=== PATIENT | female | born 1990 | race Caucasian/White ===

== ENCOUNTER 2018-12-19 13:56 | Emergency (ER) | payer OTHER, SELFPAY ==
[2018-12-19 13:59] VITALS: BP 127/75; PULSE 94; RESP 16; TEMP 36.8; O2SAT 99; BMI 29.2
--- NOTE | 2018-12-19 14:36 | ED.RN ---
STATES THAT WHEN SHE GOES TO THE RESTROOM AND STRAINS, WE BLEEDS MORE.
--- NOTE | 2018-12-19 15:07 | US_ITS ---
STUDY: FIRST TRIMESTER OBSTETRICAL ULTRASOUND REASON FOR EXAM: Female, 28 years old. Moderate bleeding cramping positive LMP: 10/30/2018 TECHNIQUE: Transvaginal TECHNICAL QUALITY: Adequate. PRIOR ULTRASOUND: None. FINDINGS: There is a gestational sac slightly low lying within the uterine fundus on the border of the lower uterine segment The mean sac diameter (MSD) measures 0.7 cm, indicating an estimated gestational age (EGA) of 5 weeks, 3 days. There is a teardrop shape of the gestational sac on the sagittal views. A yolk sac is visualized measuring 2.2 cm. There is echogenic material within the gestational sac that measures 6.5 mm. This may represent a pole which would equate to a 6 week 4 day . This shows no evidence of cardiac activity. The estimated gestation age (EGA) by LMP is 7 weeks, 1 days. The estimated date of delivery (ARINA) by LMP is 08/06/2019. The estimated gestation age (EGA) by US is 6 weeks, 0 days. The estimated date of delivery (ARINA) by US is 08/14/2019. The uterus measures 8.9 x 5.7 x 4.8 cm. There is a small anteriorly located fibroid measuring 1.9 x 2.2 x 2.0 cm this is partially exophytic. There is a inhomogeneous appearance of the visualized cervix with possible small calcifications and/or fluid. The right ovary measures 2.4 x 1.7 x 1.3 cm. There is no right ovarian cyst. There is no visualized right adnexal mass or complex lesion. The left ovary measures 2.7 x 2.2 x 1.5 cm. There is a small hypoechoic cyst measuring 1.3 x 1.4 x 1.2 cm. There is no visualized left adnexal mass or complex lesion. There is no fluid in the cul de sac. US/Transvaginal w/Preg US IMPRESSION: There is a gestational sac which is in the low aspect of the fundus proximal aspect of the uterine segment with a echogenic focus which is suggestive of a pole but somewhat atypical in shape with a gestational sac and atypical in shape and density for the material within the gestational sac. At this time there are no M-mode heart tones raising concern for demise. However given that this is an early recommend close interval follow-up study, to clarify. Electronically Signed: Caroline Segundo MD at 16:41 EDT Tel , Service support ,
--- NOTE | 2018-12-19 15:23 | ED.DCSUM_ITS ---
- ER Visit Summary Date of Service: 12/19/18 Chief Complaint: Vaginal bleeding History of Present Illness: The patient is a 28 F who had a positive home test 2 or 3 weeks ago. She started spotting a few days ago and has had heavier bleeding today. She reports some mild cramping. She has not yet seen an OB with this and is scheduled to be seen next week for blood work. Physical Examination: Vital signs unremarkable. Patient sitting upright in bed no acute distress. Head neck examination unremarkable. Heart is regular rate and rhythm. Lungs sounds are clear. Abdomen is soft with minimal suprapubic tenderness. No guarding or rebound noted. Test Results: CBC is unremarkable. Quant is 2306. Blood type is A+. Ultrasound shows gestational sac that is low in the fundus with a focus suggestive of a pole, but atypical in shape. No heart tones are noted. This is potentially concerning for demise versus early . Emergency Department Course and Treatment: Test results discussed with the patient. Her FINANCIAL ADVISER is currently out of the area. I spoke with Dr. Garcia and he states they can follow-up with the patient if need be [facility] I did write a repeat quant to be performed in 48 hours. Treatment Plan: [] Disposition: Discharge Impression: Threatened AB This note was generated with [employer] dictation software. It may contain incorrect words, spelling, and punctuation that were not noted in review of the chart prior to signing ED Disposition - Plan for ED Patient: Disposition: Home or Assisted Living Instructions: ED Miscarriage Poss Referrals: Raymundo Garcia MD [STAFF PHYSICIAN] -
[2018-12-19 16:00] LABS: Absolute Lymphocyte Count 1.26 X10^3/ul (0.83-4.51); Absolute Neutrophil Count 5.3 X10^3/uL (2.0-7.7); Basophil# 0.02 X10^3/uL; Basophil% 0.3 % (0-1); Eosinophil# 0.06 X10^3/uL; Eosinophils% 0.8 % (0-5); Hemoglobin 13.5 g/dl (12.0-15.0); Lymphocyte # 1.26 X10^3/ul (4.0); Lymphocyte % 17.3 % (19-41); Mean Corp Hgb Conc 33.8 g/gl (32-36); Mean Corpuscular Hgb 30.6 pg (27.0-32.0); Mean Corpuscular Volume 90.7 fL (81-99); Mean Platelet Vol. 10.5 fl (6.2-12.0); Monocyte% 8.3 % (0-10); Neutrophil # 5.32 X10^3/uL (2.7-7.7); Neutrophil % 73.2 % (47-70); POSITIVE COUNT NO; POSITIVE DIFFERENTIAL NO; POSITIVE MORPHOLOGY NO; Platelet Count 214 K/mm3 (150-450); RBC Distribution Width CV 13.7 % (11.6-14.6); Red Blood Count 4.41 M/mm3 (4.2-5.4); White Blood Count 7.3 K/mm3 (4.4-11.0)
[2018-12-19 17:03] LABS: hCG Titer Quant., Serum 2306 mIU/mL (<9 non-preg)
--- NOTE | 2018-12-19 17:03 | ED.RN ---
LAB CALL WITH REPORTABLE HCG VALUE OF 2306. VERBALLY REPORTED TO DR. KING AND SAMEER LANDAVERDE.
--- NOTE | 2018-12-19 18:18 | ED.DEP ---
ED Disposition - Plan for ED Patient: Disposition: Home or Assisted Living Instructions: ED Miscarriage Poss Referrals: Raymundo Garcia MD [STAFF PHYSICIAN] -
[2018-12-19 18:31] VITALS: PULSE 66
[2018-12-19 18:32] VITALS: BP 103/77; PULSE 66; RESP 14; O2SAT 99
== END 2018-12-19 18:32 | disposition home or self-care (01) ==
PROVIDERS: Emergency Provider Emergency Medicine
DX: O20.0 Threatened abortion (principal); Z3A.00 Weeks of gestation of pregnancy not specified
CPT/HCPCS: 76817; 84702; 85025; 86900; 99283; A4216

== ENCOUNTER → 2018-12-21 13:31 | Outpatient (CLI) | payer OTHER, SELFPAY ==
[2018-12-19 13:59] VITALS: BMI 29.2
[2018-12-21 15:09] LABS: hCG Titer Quant., Serum 498 mIU/mL (<9 non-preg)
== END ==
PROVIDERS: Referring Provider Emergency Medicine; Visit Provider Emergency Medicine
DX: O20.0 Threatened abortion (principal); Z3A.00 Weeks of gestation of pregnancy not specified
CPT/HCPCS: 36415; 84702

== ENCOUNTER → 2020-09-25 12:34 | Outpatient (CLI) | payer OTHER, SELFPAY ==
[2020-09-25 14:01] LABS: hCG Titer Quant., Serum 30451 mIU/mL (1-3)
== END ==
LOC: LAB 12:36
PROVIDERS: Referring Provider Obstetrics & Gynecology; Visit Provider Obstetrics & Gynecology
DX: N91.2 Amenorrhea, unspecified (principal)
CPT/HCPCS: 36415; 84702

== ENCOUNTER → 2020-10-14 14:40 | Outpatient (CLI) | payer OTHER, SELFPAY ==
--- NOTE | 2020-10-14 14:44 | US_ITS ---
STUDY: FIRST TRIMESTER OBSTETRICAL ULTRASOUND REASON FOR EXAM: Female, 29 years old DATING. HCG DRAWN 09/25/2020- [id number]. LMP: 08/21/2020 TECHNIQUE: Transabdominal TECHNICAL QUALITY: Adequate. PRIOR ULTRASOUND: None. FINDINGS: There is visualization of a single gestational sac in a normal intrauterine position. The mean sac diameter (MSD) measures 3.52 cm, indicating an estimated gestational age (EGA) of 8 weeks, 5 days. The gestational sac shape is within normal limits containing 2 live embryos. Trace subchorionic blood is suspected. The placenta is non-visualized. Baby A: The crown-rump length (CRL) measures 2.42 cm, indicating an estimated gestational age (EGA) of 8 weeks, 5 days. There is demonstrated cardiac activity with a heart rate of 176 bpm. There is a visualized yolk sac measuring 0.46 cm. The estimated gestation age (EGA) by LMP is 7 weeks, 5 days. The estimated date of delivery (ARINA) by LMP is 05/28/2021. The estimated gestation age (EGA) by US is 8 weeks, 5 days. The estimated date of delivery (ARINA) by US is 05/21/2021. Baby B: The crown-rump length (CRL) measures 2.42 cm, indicating an estimated gestational age (EGA) of 8 weeks, 6 days. There is demonstrated cardiac activity with a heart rate of 176 bpm. There is a visualized yolk sac measuring 0.41 cm. The estimated gestation age (EGA) by LMP is 7 weeks, 5 days. The estimated date of delivery (ARINA) by LMP is 05/28/2021. The estimated gestation age (EGA) by US is 8 weeks, 5 days. The estimated date of delivery (ARINA) by US is 05/21/2021. The uterus measures 9.4 x 7.5 x 6.5 cm. There is no demonstrated uterine fibroid. The cervix is closed. The right ovary measures 2.6 x 2.3 x 1.5 cm. There is no right ovarian cyst. There is no visualized right adnexal mass or complex lesion. The left ovary measures 2.8 x 2.8 x 2.9 cm. There is a 2.4 cm left ovarian cyst. There is no fluid in the cul de sac. IMPRESSION: Intrauterine with a single gestational sac containing 2 live embryos. Trace subchorionic blood is suspected. Left ovarian cyst. Electronically Signed: Mauri GuanDO at 16:39 EST Tel [phone], Service support , STUDY: FIRST TRIMESTER OBSTETRICAL ULTRASOUND REASON FOR EXAM: Female, 29 years old DATING. HCG DRAWN 09/25/2020- [id number]. LMP: 08/21/2020 TECHNIQUE: Transabdominal TECHNICAL QUALITY: Adequate. PRIOR ULTRASOUND: None. FINDINGS: There is visualization of a single gestational sac in a normal intrauterine position. The mean sac diameter (MSD) measures 3.52 cm, indicating an estimated gestational age (EGA) of 8 weeks, 5 days. The gestational sac shape is within normal limits containing 2 live embryos. Trace subchorionic blood is suspected. The placenta is non-visualized. Baby A: The crown-rump length (CRL) measures 2.42 cm, indicating an estimated gestational age (EGA) of 8 weeks, 5 days. There is demonstrated cardiac activity with a heart rate of 176 bpm. There is a visualized yolk sac measuring 0.46 cm. The estimated gestation age (EGA) by LMP is 7 weeks, 5 days. The estimated date of delivery (ARINA) by LMP is 05/28/2021. The estimated gestation age (EGA) by US is 8 weeks, 5 days. The estimated date of delivery (ARINA) by US is 05/21/2021. Baby B: The crown-rump length (CRL) measures 2.42 cm, indicating an estimated gestational age (EGA) of 8 weeks, 6 days. There is demonstrated cardiac activity with a heart rate of 176 bpm. There is a visualized yolk sac measuring 0.41 cm. The estimated gestation age (EGA) by LMP is 7 weeks, 5 days. The estimated date of delivery (ARINA) by LMP is 05/28/2021. The estimated gestation age (EGA) by US is 8 weeks, 5 days. The estimated date of delivery (ARINA) by US is 05/21/2021. The uterus measures 9.4 x 7.5 x 6.5 cm. There is no demonstrated uterine fibroid. The cervix is closed. The right ovary measures 2.6 x 2.3 x 1.5 cm. There is no right ovarian cyst. There is no visualized right adnexal mass or complex lesion. The left ovary measures 2.8 x 2.8 x 2.9 cm. There is a 2.4 cm left ovarian cyst. There is no visualized left adnexal mass or complex lesion. There is no fluid in the cul de sac. US/Init OB < 14Wks US IMPRESSION: Intrauterine with a single gestational sac containing 2 live embryos. Trace subchorionic blood is suspected. Left ovarian cyst. Electronically Signed: Mauri Guan DO at 16:39 EST Tel [phone], Service support ,
== END ==
LOC: OPUS 14:42
PROVIDERS: Referring Provider Obstetrics & Gynecology; Visit Provider Obstetrics & Gynecology
DX: Z78.9 Other specified health status (principal)
CPT/HCPCS: 76801; 76802

== ENCOUNTER → 2020-10-17 14:08 | Outpatient (CLI) | payer OTHER, SELFPAY ==
[2020-10-17 13:20] VITALS: BMI 29.6
[2020-10-17 15:05] LABS: Absolute Lymphocyte Count 1.51 X10^3/uL (0.83-4.51); Absolute Neutrophil Count 4.7 X10^3/uL (2.0-7.7); Basophil# 0.02 X10^3/uL; Basophil% 0.3 % (0-1); Eosinophils% 1.4 % (0-5); Hematocrit 36.3 % (37-47); Hemoglobin 12.3 g/dL (12.0-15.0); Lymphocyte # 1.51 X10^3/ul (4.0); Lymphocyte % 21.8 % (19-41); Mean Corp Hgb Conc 33.9 g/dL (32-36); Mean Corpuscular Hgb 30.7 pg (27.0-32.0); Mean Corpuscular Volume 90.5 fL (81-99); Mean Platelet Vol. 10.6 fl (6.2-12.0); Monocyte# 0.62 X10^3/uL; Monocyte% 8.9 % (0-10); NRBC Flagged by Analyzer 0 % (0-5); Neutrophil # 4.68 X10^3/uL (2.7-7.7); Neutrophil % 67.5 % (47-70); Platelet Count 263 K/mm3 (150-450); RBC Distribution Width CV 12.5 % (11.6-14.6); RBC Distribution Width SD 41.3 fl (35.1-43.9); Red Blood Count 4.01 M/mm3 (4.2-5.4); White Blood Count 6.9 K/mm3 (4.4-11.0)
[2020-10-17 15:24] LABS: Glucose Challenge Gest 1H 50g 83 mg/dL (70-140)
[2020-10-17 15:29] LABS: Amphetamine Urine VISTA NEGATIVE (<1000 ng/mL); Barbiturate Urine VISTA NEGATIVE (< 200 ng/mL); Benzodiazepine Urine VISTA NEGATIVE (< 200 ng/mL); Cocaine Urine VISTA NEGATIVE (< 300 ng/mL); Ecstacy Urine VISTA NEGATIVE (< 500 ng/mL); Methadone Urine VISTA NEGATIVE (< 300 ng/mL); PCP Urine VISTA NEGATIVE (< 25 ng/mL); THC Urine VISTA NEGATIVE (< 50 ng/mL); Vista UDS pH Range 6
[2020-10-17 16:18] LABS: HIV - WCH Non-Reactive (Nonreactive); Hepatitis B Surface Antigen Non-Reactive (Nonreactive); Hepatitis C Antibody Non-Reactive (Nonreactive); Rubella IgG Non-Reactive (Nonreactive)
[2020-10-17 17:55] LABS: Chlamydia Trachomatis by PCR Negative (Negative); Neisserai gonorrhoeae by PCR Negative (Negative); Probe Check PASS; Sample Adequacy Control PASS; Specimen Processing Control PASS
[2020-10-23 15:41] LABS: HPV APTIMA, High Risk Negative (Negative)
[2020-10-24 01:40] LABS: Rapid Plasmin Reagin (RPR) NONREACTIVE (NONREACTIVE)
== END ==
LOC: LAB 14:10
PROVIDERS: Referring Provider Obstetrics & Gynecology; Visit Provider Obstetrics & Gynecology
DX: Z34.90 Encounter for supervision of normal pregnancy, unspecified, unspecified trimester (principal)
CPT/HCPCS: 36415; 80307; 82950; 85025; 86592; 86703; 86762; 86803; 86850; 86900; 86901; 87086; 87088; 87340; 87491; 87591; 87624; 88175; G0145

== ENCOUNTER → 2020-11-13 16:53 | Outpatient (CLI) | payer OTHER, SELFPAY ==
[2020-11-13 14:45] VITALS: BMI 29.7
== END ==
LOC: LABSPEC 16:54
PROVIDERS: Referring Provider Nurse Practitioner Women's Health; Visit Provider Nurse Practitioner Women's Health
DX: R30.9 Painful micturition, unspecified (principal)
CPT/HCPCS: 87086; 87088

== ENCOUNTER → 2020-12-27 16:53 | Outpatient (CLI) | payer OTHER, SELFPAY ==
[2020-12-27 15:58] VITALS: BMI 30.6
== END ==
LOC: LABSPEC 16:54
PROVIDERS: Referring Provider Obstetrics & Gynecology; Visit Provider Obstetrics & Gynecology
DX: O26.899 Other specified pregnancy related conditions, unspecified trimester (principal); R10.2 Pelvic and perineal pain; R30.0 Dysuria; Z3A.00 Weeks of gestation of pregnancy not specified
CPT/HCPCS: 87070; 87086; 87088; 87205

== ENCOUNTER → 2021-02-20 14:27 | Outpatient (CLI) | payer OTHER, SELFPAY ==
[2021-02-06 15:54] VITALS: BMI 31.6
[2021-02-20 14:54] LABS: Absolute Lymphocyte Count 1.73 X10^3/uL (0.83-4.51); Absolute Neutrophil Count 6.1 X10^3/uL (2.0-7.7); Basophil# 0.05 X10^3/uL; Basophil% 0.6 % (0-1); Eosinophil# 0.09 X10^3/uL; Hematocrit 32.4 % (37-47); Hemoglobin 10.5 g/dL (12.0-15.0); Lymphocyte # 1.73 X10^3/ul (0.83-4.51); Lymphocyte % 19.1 % (19-41); Mean Corp Hgb Conc 32.4 g/dL (32-36); Mean Corpuscular Hgb 29.9 pg (27.0-32.0); Mean Corpuscular Volume 92.3 fL (81-99); Mean Platelet Vol. 9.8 fl (6.2-12.0); Monocyte# 0.81 X10^3/uL; NRBC Flagged by Analyzer 0 % (0-5); Neutrophil # 6.14 X10^3/uL (2.7-7.7); Neutrophil % 67.9 % (47-70); Platelet Count 247 K/mm3 (150-450); RBC Distribution Width CV 13.3 % (11.6-14.6); RBC Distribution Width SD 44.1 fl (35.1-43.9); Red Blood Count 3.51 M/mm3 (4.2-5.4)
[2021-02-20 15:46] LABS: Glucose Challenge Gest 1H 50g 97 mg/dL (70-140)
[2021-02-24 17:16] VITALS: BMI 31.9
== END ==
PROVIDERS: Referring Provider Obstetrics & Gynecology; Visit Provider Obstetrics & Gynecology
DX: O09.90 Supervision of high risk pregnancy, unspecified, unspecified trimester (principal); Z3A.00 Weeks of gestation of pregnancy not specified; Z13.1 Encounter for screening for diabetes mellitus
CPT/HCPCS: 36415; 82950; 85025

== ENCOUNTER 2021-02-24 16:50 | Outpatient (CLI) | payer OTHER, SELFPAY ==
[2021-02-20 15:08] VITALS: BMI 31.6
[2021-02-24] VITALS (21 sets, daily range): BP systolic 117–144; BP diastolic 63–79; PULSE 94–122; RESP 18–20; TEMP 36.4–36.9; O2SAT 97–100; BMI 31.9
[2021-02-24] MEDS: Lactated Ringers 1,000 ML 25 ML IV (17:55)
[2021-02-24] MEDS: Magnesium Sulfate 4gm/100mL 6 GM/150 ML IV.SOLN. IV (17:56)
[2021-02-24] MEDS: Indomethacin 25 MG Capsule 50 MG PO (18:00)
[2021-02-24 18:02] LABS: Color, Urine Yellow (Yellow); Glucose, Dipstick Normal (Normal); Ketone-Dipstick Negative (Negative); Leukocyte Esterase-Dipstick 100 /ul (Negative); Nitrite-Dipstick Negative (Negative); Occult Blood-Urine Negative /ul (Negative); Protein-Dipstick Negative (Negative); Urine Bilirubin Dipstick Negative (Negative); Urine Clarity Clear (Clear); Urine Urobilinogen Normal (Normal)
--- NOTE | 2021-02-24 18:03 | OB.TRI.HP_ITS ---
HPI - General HPI Narrative DAVID BATISTA, is a 30 F at 27 weeks 5 days who presents for contractions. Patient reports that she started dave every 8 to 10 minutes last night. Reports that contractions have become more regular and painful throughout the day. She has tried resting and p.o. hydration and has not noticed any relief. Reports contractions are becoming increasingly painful and wrapping around to her back. Reports that her underwear felt increasingly wet throughout the day today, but did not notice a large gush of fluid. Denies vaginal bleeding. Reports movement is normal. Denies dysuria. Maternal Data Information ARINA Calculator Estimated Delivery Date Method Current WG Current Estimate 05/21/21 Ultrasound #1 27w 5d # 2 PFSH Medical History (Updated 02/24/21 @ 18:[address] Chelsie Leone MD) H/O gestational diabetes in prior , currently Raynaud disease Home Medications aspirin 81 mg chewable tablet 81 mg PO DAILY 11/13/20 [History Last Taken 1 Week Ago ~02/17/21] Vitamin 1 tab DAILY 02/24/21 [History Last Taken 02/24/21 13:00] diphenhydramine HCl [Benadryl] 50 mg PO QHS PRN PRN 02/24/21 [History Last Taken 3 Days Ago ~02/21/21] ferrous sulfate 325 mg PO DAILY 02/24/21 [History Last Taken Unknown] folic acid 1 mg PO DAILY 02/24/21 [History Last Taken 2 Days Ago ~02/22/21] Allergy/AdvReac Type Severity Reaction Status Date / Time shellfish derived Allergy Severe Anaphylaxis Verified 02/24/21 18:07 gluten Allergy Upset Verified 02/24/21 18:07 Stomach DAIRY Allergy Upset Uncoded 02/24/21 18:07 Stomach Family History Mother Diabetes type 2 Bipolar 1 disorder, depressed Schizo affective schizophrenia Father Thyroid disorder Cancer Brother Diabetes type 1 Sister Thyroid disorder Sister Thyroid disorder Aunt Diabetes type 1 Grandmother Breast cancer Surgical History History of appendectomy Social History household members: family housing: house number of children: 1 current occupational status: employed current occupation: corporate technical recruiter for [employer] pets and animals: Yes Smoking Status: Never smoker second hand exposure: No alcohol intake: current alcohol intake frequency: holidays/special occasions only details: not while substance use type: does not use diet: diabetic, gluten free and lactose free seatbelt use: always do you feel safe at home: Yes additional social history: - Virgilio (geospatial information technologist) History 3 Elective abortions Hx Para 1 Spontaneous abortions 1 Hx # Term Pregnancies Ectopic pregnancies Hx # Pregnancies Multiple births # of living children 1 Past Pregnancies Del. Date Name GA/Weeks Outcome Route Bth Weight Gen Labor Lgth Anesthesia Del Locatn Provider FOB 01/26/18 Lawrence Ba 38 live - full term 6lb 15oz Female 5-6 hours epidural [facility]dar Delivery Date: 01/26/18 GDM; Jeannine Hansen Visit Details Expected Delivery Route/Plan Labor Preferences- CB/BF classes: na labor support person: [] labor intervention preferences: [] pain management options preferred: [] cut cord/dad catch: [] : [] PP control planned: [] discussed possible routes of delivery and associated risks: [] special requests: [] Plans flu vaccine: decline tdap vaccine: [] rhogam: [] LARC form signed: [] Problem list reviewed and updated with the most current plan of care details and appropriate orders placed. Relevant counseling for the gestational age provided. Continue routine care and follow up unless otherwise noted in visit notes/problem list details OB Flowsheet Initial Weight: 175 lb Date -?-?-?-?-?-?-?-?-?-?-?-?- EGA Weight BP Urine Prot -?-?-?-?-?-?-?-?-?-?-?-?- Glucose FHR FuHt Pres Dilation -?-?-?-?-?-?-?-?-?-?-?-?- Effaced St Visit Note 10/17/20 -?-?-?-?-?-?-?-?-?-?-?-?- 9w 1d 178 lb (+3 lb) 122/80 -?-?-?-?-?-?-?-?-?-?-?-?- A 160 -?-?-?-?-?-?-?-?-?-?-?-?- B 155 A -?-?-?-?-?-?-?-?-?-?-?-?- B -?-?-?-?-?-?-?-?-?-?-?-?- A -?-?-?-?-?-?-?-?-?-?-?-?- B A SM- vb decreasin g to light brown. nausea. unclear if mono/mono vs mono/di -?-?-?-?-?-?-?-?-?-?-?-?- B 11/13/20 -?-?-?-?-?-?-?-?-?-?-?-?- 13w 0d 178 lb 8 oz (+3 lb 8 oz) 104/60 Negative -?-?-?-?-?-?-?-?-?-?-?-?- Negative A 157 -?-?-?-?-?-?-?-?-?-?-?-?- B 144 A -?-?-?-?-?-?-?-?-?-?-?-?- B 0 -?-?-?-?-?-?-?-?-?-?-?-?- A -?-?-?-?-?-?-?-?-?-?-?-?- B A Work in for sudd en vaginal pain. With exam internal and external over symphisis. No VB, LOF. Brief US active IUP X 2. Consult GP:Rx flexeril, heating pad over mons only. Rest. Keep appt tomorrow. -?-?-?-?-?-?-?-?-?-?-?-?- B 11/14/20 -?-?-?-?-?-?-?-?-?-?-?-?- 13w 1d 179 lb 8 oz (+4 lb 8 oz) 120/70 Negative -?-?-?-?-?-?-?-?-?-?-?-?- Negative A 160 -?-?-?-?-?-?-?--?-?-?-?-?- B 150 A -?-?-?-?-?-?-?-?-?-?-?-?- B -?-?-?-?-?-?-?-?-?-?-?-?- A -?-?-?-?-?-?-?-?-?-?-?-?- B A SM_ still having pubic symphysis pain no vb no ctx, worse last night better today, getting belly support band. ua neg yesterday. fu with mfm next week -?-?-?-?-?-?-?-?-?-?-?-?- B 12/12/20 -?-?-?-?-?-?-?-?-?-?--?-?- 17w 1d 182 lb 8 oz (+7 lb 8 oz) 118/78 Negative -?-?-?-?-?-?-?-?-?-?-?-?- Negative A 145 -?-?-?-?-?-?-?-?-?-?-?-?- B 155 A -?-?-?-?-?-?-?-?-?-?-?-?- B -?-?-?-?-?-?-?-?-?-?-?-?- A -?-?-?-?-?-?-?-?-?-?-?-?- B A GP - no LOF, VB, DFM, ctx. Determined to have Mclean-di twins. Discussed pelvic rest for low-lying placenta. -?-?-?-?-?-?-?-?-?-?-?-?- B 12/27/20 -?-?-?-?-?-?-?-?-?-?-?-?- 19w 2d 184 lb (+9 lb) 120/76 1+ -?-?-?-?-?-?-?-?-?-?-?-?- Negative A 155 -?-?-?-?-?-?-?-?-?-?-?-?- B 140 A -?-?-?-?-?-?-?-?-?-?-?-?- B 0 -?-?-?-?-?-?-?-?-?-?-?-?- A -?-?-?-?-?-?-?-?-?-?-?-?- B A GP - work in for spotting with urination. No bleeding on vaginal exam and cervix closed. UA positive for blood. Abx sent to pharmacy. No DFM, ctx, LOF. -?-?-?-?-?-?-?-?-?-?-?-?- B 01/07/21 -?-?-?-?-?-?-?-?-?-?-?-?- 20w 6d 188 lb 4 oz (+13 lb 4 oz) 110/60 -?-?-?--?-?-?-?-?-?-?-?-?- A 160 -?-?-?-?-?-?-?-?-?-?-?-?- B 150 A Cephalic -?-?-?-?-?-?-?-?-?-?-?-?- B Breech 0 -?-?-?-?-?-?-?-?-?-?-?-?- A -?-?-?-?-?-?-?-?-?-?-?-?- B A MH work in for v aginal pain after large and difficult BM. No VB, LOF. Had small amount blood with BM. See exam, A&P -?-?-?-?-?-?-?-?-?-?-?-?- B 01/09/21 -?-?-?-?-?-?-?-?-?-?-?-?- 21w 1d 190 lb (+15 lb) 110/80 Negative -?-?-?-?-?-?-?-?-?-?-?-?- Negative A 145 -?-?--?-?-?-?-?-?-?-?-?-?- B 155 A Cephalic -?-?-?-?-?-?-?-?-?-?-?-?- B Transverse -?-?-?-?-?-?-?-?-?-?-?-?- A -?-?-?-?-?-?-?-?-?-?-?-?- B A GP- no cramping or bleeding. Swelling and pain significantly decreased from last week. Constipation resolved. -?-?-?-?-?-?-?-?-?-?-?-?- B 02/06/21 -?-?-?-?-?-?-?-?-?-?-?-?- 25w 1d 198 lb (+23 lb) 100/82 Negative -?-?-?-?-?-?-?-?-?-?-?-?- Negative A 145 -?-?-?-?-?-?-?-?-?-?-?-?- B 140 A Cephalic -?-?-?-?-?-?-?-?-?-?-?-?- B Cephalic -?-?-?-?-?-?-?-?-?-?-?-?- A -?-?-?-?-?-?-?-?-?-?-?-?- B A SM- no vb lof go od fm co pain with fm and discomfort, trouble sleeping -?-?-?-?-?-?-?-?-?-?-?-?- B 02/20/21 -?-?-?-?-?-?-?-?-?-?-?-?- 27w 1d 199 lb (+24 lb) 122/68 Negative -?-?-?-?-?-?-?-?-?-?-?-?- Negative A 143 -?-?-?-?-?-?-?-?-?-?-?-?- B 147 A Cephalic -?-?-?-?-?-?-?-?-?-?-?-?- B Cephalic 0 -?-?-?-?-?-?-?-?-?-?-?-?- A -?-?-?-?-?-?-?-?-?-?-?-?- B A GP - no LOF, VB, DFM. Feeling more pressure and occasional ctx. -?-?-?-?-?-?-?-?-?-?-?-?- B 02/24/21 -?-?-?-?-?-?-?-?-?-?-?-?- 27w 5d 198 lb 3.129 oz (+23 lb 3.129 oz) 126/76 126/76 126/76 127/73 134/77 Negative mg/dl (Nega tive) -?-?-?-?-?-?-?-?-?-?-?-?- A -?-?-?-?-?-?-?-?-?-?-?-?- B A -?-?-?-?-?-?-?-?-?-?-?-?- B -?-?-?-?-?-?-?-?-?-?-?-?- A -?-?-?-?-?-?-?-?-?-?-?-?- B A -?-?-?-?-?-?-?-?-?-?-?-?- B ROS Constitutional Constitutional: Denies fever(s) ENT HEENT: Denies dizziness Cardiovascular Cardiovascular: Denies lightheadedness Gastrointestinal Gastrointestinal: Reports abdominal pain and cramping; Denies nausea or vomiting Genitourinary Genitourinary: Reports contractions and movement; Denies burning urination, difficulty urinating or urinary urgency Physical Exam Const alert, oriented x3, no apparent distress, average body habitus, healthy appearing and well nourished HEENT normocephalic and moist oral mucous membranes Head and Scalp: atraumatic Eyes PERRL and EOMs intact bilaterally Neck full ROM Resp normal respiratory effort, no retractions and no use of accessory muscles Cardio regular rate and regular rhythm GI soft to palpation, non-tender and non-distended external exam normal, appearance of the vagina normal and appearance of the cervix normal OB / External & Speculum: Negative for bleeding, vaginal laceration, vulvular erythema, vulvular tenderness, vaginal bleeding or vaginal discharge Manual OB Exam: presentation cephalic (Baby A and baby B), dilated 1.5, effaced 50 and station -2 Amniotic Fluid: no amniotic fluid noted Extremity normal to inspection and full ROM Skin no rashes or lesions noted Neuro no focal motor deficits and no sensory deficits noted Psych mental status grossly normal, affect normal, speech normal and activity/motor behavior normal NST FHR Rate Baby A Baseline: 150 Variability:: Moderate Accelerations:: 15 x 15 Decelerations:: None NST Reactive:: Yes FHR Category:: Category I Uterine Activity:: q2-3min FHR Rate Baby B Baseline: 155 Variability:: Moderate Accelerations:: 15 x 15 Decelerations:: None NST Reactive:: Yes FHR Category:: Category I Assessment & Plan (1) labor: QUALIFIERS: labor trimester: third trimester labor delivery status: without delivery Qualified Code(s): O60.03 - labor without delivery, third trimester PLAN: Patient presents with contractions that started yesterday evening On toco, patient dave every 2 to 3 minutes and appears uncomfortable with contractions On exam, cervix is 1-2/50/-2 Indomethacin started for toco lysis Magnesium sulfate started for neuro protection Penicillin started for GBS unknown-GBS culture collected CBC and type and screen sent Betamethasone ordered Baby is vertex/vertex Plan for maternal transport to [facility] for labor (2) Low-lying placenta in second trimester: COMMENT: resolved at 24w (3) Monochorionic diamniotic twin gestation: QUALIFIERS: Trimester: second trimester Qualified Code(s): O30.032 - Twin , monochorionic/diamniotic, second trimester COMMENT: MFM - co management w/ACH MFM, fluid checks q2w, growths q4w- planned w/FTC. Anatomy scan NL. echo recommended at 20-22w. Baby ASA QD. Delivery at 36w. Pelvic rest; NL NADEGE 12/19/20; NL echo 01/21/21. Screening every 2 weeks for TTS, weekly NSTs at 32 weeks. Normal growth on 01/30/21 PLAN: Vertex/vertex presentation (4) Raynaud disease: QUALIFIERS: Raynaud?s-associated gangrene presence: without gangrene Qualified Code(s): I73.00 - Raynaud's syndrome without gangrene (5) H/O gestational diabetes in prior , currently : COMMENT: early 1h GCT nl (6) Supervision of high risk , antepartum: COMMENT: PRR ARINA: 05/21/21 Boys! Nagi & Sergio PC: Lawrence (girl) Spouse: Virgilio (7) : QUALIFIERS: Weeks of gestation: 21 weeks Qualified Code(s): Z3A.21 - 21 weeks gestation of COMMENT: declines genetic and carrier. anatomy reviewed. Multi Select Codes Visit Charges Office Visit/Consults: [id number] OV L3 Est Urinary/Genital Urinary/Genital CPT Codes: 53830-97 non-stress test Interp
[2021-02-24 18:11] LABS: Absolute Lymphocyte Count 2.32 X10^3/uL (0.83-4.51); Absolute Neutrophil Count 6.9 X10^3/uL (2.0-7.7); Basophil# 0.04 X10^3/uL; Basophil% 0.4 % (0-1); Eosinophil# 0.18 X10^3/uL; Eosinophils% 1.7 % (0-5); Hematocrit 33.3 % (37-47); Hemoglobin 10.9 g/dL (12.0-15.0); Lymphocyte # 2.32 X10^3/ul (0.83-4.51); Mean Corp Hgb Conc 32.7 g/dL (32-36); Mean Corpuscular Hgb 30.1 pg (27.0-32.0); Mean Platelet Vol. 10.2 fl (6.2-12.0); Monocyte% 8.5 % (0-10); NRBC Flagged by Analyzer 0 % (0-5); Neutrophil # 6.91 X10^3/uL (2.7-7.7); Neutrophil % 65.5 % (47-70); Platelet Count 259 K/mm3 (150-450); RBC Distribution Width CV 13.6 % (11.6-14.6); RBC Distribution Width SD 44.6 fl (35.1-43.9); Red Blood Count 3.62 M/mm3 (4.2-5.4); White Blood Count 10.6 K/mm3 (4.4-11.0)
[2021-02-24] MEDS: Magnesium Sulfate 4gm/100mL 2 GM/50 ML IV.SOLN. IV (18:16)
[2021-02-24] MEDS: Betamethasone/Betamethasone 30 MG/5 ML Vial 12 MG IM (18:17)
[2021-02-24 18:30] LABS: ROM Internal Control Test YES-OK TO RESULT pt. (Internal QC); ROM Patient Test Negative (Negative)
[2021-02-24] MEDS: Magnesium Sulfate 20 GM/500 ML BAG IV (18:30)
[2021-02-24 18:39] LABS: Fetal Fibronectin Negative
[2021-02-24 19:32] LABS: Group B Strep DNA By PCR Negative (Negative); Internal Control PASS; Probe Check PASS; Specimen Processing Control PASS
[2021-02-25 02:14] VITALS: PULSE 93; O2SAT 98
[2021-02-25 02:15] VITALS: BP 127/79; PULSE 86
== END 2021-02-24 19:15 ==
LOC: WPOUT 17:02 → WP 17:03
PROVIDERS: Visit Provider Obstetrics & Gynecology
DX: O60.02 Preterm labor without delivery, second trimester (principal); I73.00 Raynaud's syndrome without gangrene; Z3A.27 27 weeks gestation of pregnancy; Z79.899 Other long term (current) drug therapy
CPT/HCPCS: 96365; 96366; 96367 ×3; 36415; 59025; 59050; 76815; 81002; 82731; 84112; 85025; 86850; 86900; 86901; 87081; 87653; 96372; 99218; J7120; G0378; J0702

== ENCOUNTER 2021-09-19 17:05 | Emergency (ER) | payer OTHER, SELFPAY ==
[2021-09-19 17:06] VITALS: BP 113/79; PULSE 109; RESP 18; TEMP 36.7; O2SAT 97; BMI 31.7
--- NOTE | 2021-09-19 17:25 | EX.ED.DYSGE1 ---
HPI History of Present Illness Chief Complaint: General Illness Informant: patient Onset/Context/Timing Onset: Days Context: Gradual Onset Timing: Continuous Current Severity: Mild Maximum Severity: Mild Narrative Narrative: 30-year-old female has had URI symptoms for approximately a week. Cough, myalgias with subjective fever and chills. Yesterday started having diarrhea and nausea and vomiting. Today she is nauseated but she is able to keep fluids down. She had a Covid test done at a local urgent care but is not received results yet. They also started her on prednisone and a Z-Barron at the same urgent care. Prior similar symptoms: Yes Recent Illness/Hospitalization: No PFSH PFSH Medical History H/O gestational diabetes in prior , currently Raynaud disease Home Medications vitamin#30 30 mg iron-10 mg iron-folic acid 1 mg-omg3 capsule cap PO 04/23/21 [History Last Taken Unknown] dexamethasone [Decadron] 6 mg PO DAILY #10 tab 09/19/21 [Rx Last Taken Unknown] Allergy/AdvReac Type Severity Reaction Status Date / Time shellfish derived Allergy Severe Anaphylaxis Verified 09/19/21 17:11 amoxicillin Allergy Hives Verified 09/19/21 17:11 gluten Allergy Upset Verified 09/19/21 17:11 Stomach DAIRY Allergy Upset Uncoded 09/19/21 17:11 Stomach Family History Mother Diabetes type 2 Bipolar 1 disorder, depressed Schizo affective schizophrenia Father Thyroid disorder Cancer Brother Diabetes type 1 Sister Thyroid disorder Sister Thyroid disorder Aunt Diabetes type 1 Grandmother Breast cancer Surgical History History of appendectomy Social History household members: family housing: house number of children: 1 current occupational status: employed current occupation: business development recruiter for [employer] pets and animals: Yes Smoking Status: Never smoker second hand exposure: No alcohol intake: current alcohol intake frequency: holidays/special occasions only details: not while substance use type: does not use diet: diabetic, gluten free and lactose free seatbelt use: always do you feel safe at home: Yes additional social history: - Virgilio ([employer]) ROS ROS ED ROS Narrative Nausea, Vomiting and diarrhea. Subjective fever and chills. Cough. Myalgias and arthralgias. Review of Systems ROS Unobtainable: Denies due to encephalopathy Constitutional Constitutional ED: Reports chills, fever(s) and subjective Eyes Eyes: Denies change in vision ENT ENT ED: Denies ear pain or sore throat Cardiovascular Cardiovascular: Denies chest pain Respiratory/Chest Respiratory/Chest: Reports cough and dyspnea Gastrointestinal Gastrointestinal: Reports diarrhea, nausea and vomiting; Denies abdominal pain Genitourinary Genitourinary ED: Denies dysuria Musculoskeletal Musculoskeletal: Reports arthralgias and myalgias Integumentary Denies rash Psychiatric Psychiatric: Denies depression Endocrine Endocrinology: Denies polyuria Allergic/Immunologic Allergic/Immunologic ED: Denies urticaria EXAM Physical Exam Narrative Exam Narrative: 30-year-old no acute distress vital signs stable afebrile does not look septic or toxic. Pulse ox 97% room air no signs hypoxia. HEENT exam unremarkable. Neck nontender no JVD no lymphadenopathy. Lungs clear to auscultation bilaterally. Heart regular rhythm rate about 100 no murmur. Abdomen soft nontender normal bowel sounds no peritoneal signs. Moving all 4 extremities. Nontender no edema. Back nontender. Neurologically awake and alert answering questions and following commands. Const Vital Signs: 09/19/21 17:06 09/19/21 17:39 Temperature 98.1 F Temperature Source Temporal Pulse Rate 109 H Respiratory Rate 18 Respiratory Pattern Normal Blood Pressure 113/79 Blood Pressure Mean 90 Pulse Ox 97 Oxygen Delivery Method Room Air Positive well nourished and well developed; Negative for obese, cachectic, contractures or unkempt General Appearance ED: well developed and NAD; Negative for unkempt, cachectic, contractures, cyanotic or diaphoretic Nutritional Appearance: Negative for cachectic or obese HEENT Reports moist mucous membranes Negative for trauma or tenderness Eyes PERRL and EOMs intact bilaterally Neck no lymphadenopathy, supple and no JVD Chest Wall inspection of chest normal and palpation of chest normal Resp normal respiratory effort and clear to auscultation bilaterally Effort and Inspection: Negative for pain with movement Auscultation: Negative for rales, rhonchi or wheezes Cardio regular rate, regular rhythm, S1 normal heart sound, S2 normal heart sound and no murmurs GI normal to inspection, nondistended, normoactive bowel sounds, non-tender, non-distended and no masses Auscultation: normoactive bowel sounds Palpation: soft; Negative for tender, guarding or rebound tenderness present Back/Spine no CVA tenderness General Back: Negative for CVA tenderness Cervical Spine: Negative for cervical spine tenderness Thoracic Spine / Upper Back: Negative for thoracic spinal tenderness Extremity normal to inspection General Extremety ED: Negative for edema or tenderness General Extremity: Negative for edema Neuro oriented x3 and CN's II-XII intact bilaterally Sensorium / Orientation: alert; Negative for orientation impaired, lethargic or stuporous Motor Exam: strength 5/5 throughout Psych mental status grossly normal Appearance: Negative for unkempt Mood & Affect: Negative for depressed or tearful Skin no rashes or lesions noted, no wounds and No skin turgor normal General Skin Exam: Negative for elasticity normal MDM MDM MDM Narrative Medical decision making narrative: 30-year-old female URI symptoms rule out Covid. She is able to eat and drink. She will be given some Zofran for nausea. Clinically she does not look dehydrated. Chest x-ray being obtained. Repeat exam patient is doing well at 6:05 PM. She will be discharged home on Decadron. Stop the Zithromax Z-Barron that she was placed on. Outpatient follow-up with [facility] therapy center. Lab Data Attestation: I reviewed the patient's lab results. Lab results narrative: Rapid Covid antigen test was positive. Radiography Chest X-Ray - ED: 1 View, Read by ED Physician, Heart, Lungs, Mediastinum, Bony Structures, No Acute Disease and Chronic Changes Diagnostic Testing: Clinical Impression(s) from Imaging Studies Chest X-Ray 09/19/21 17:30 IMPRESSION: Normal x-ray examination of the chest. Electronically Signed: Mauri Guan DO at 17:42 EST Tel [phone], Service support , Chest x-ray, portable, single view interpreted myself and radiologist shows no acute abnormality. Discharge Plan Triage Chief Complaint: General Illness ED Provider: Stephen Fernández Dx/Rx/DC Orders Clinical Impression: COVID-19 Instructions: Human Coronaviruses Prescriptions: New dexamethasone [Decadron] 6 mg tablet 6 mg PO DAILY Qty: 10 RF: 0 No Action PNV #[id number] 30 mg iron-10 mg iron-1 mg capsule PO RF: 0 Other Ambulatory Orders: COVID Outpatient Monoclonal Antibody Referral (Routine) Timeframe: 1 Day Facility: [facility] - Location: [facility] Ordered By: Dr. Stephen Fernández Primary Care Provider: Care Physician,No Primary Referrals: Raymundo Carrillo MD [STAFF PHYSICIAN] - 1 Week if not improving Care Physician,No Primary [Primary Care Provider] - Activity Restrictions/Additional Instructions: Stop the antibiotic Zithromax it will be no good currently. Decadron once a day. Plenty of fluids and rest. Alternate Tylenol Motrin for body aches and fevers. If Wednesday by on if not call you for the monoclonal antibody therapy call the emergency department here at [phone] and we will connect you to the monoclonal antibody center. This needs to be done no later than Wednesday. Disposition Disposition: Home, Self Care
--- NOTE | 2021-09-19 17:30 | RAD_ITS ---
STUDY: X-RAY CHEST REASON FOR EXAM: Female, 30 years old. Cough TECHNIQUE: Frontal view COMPARISON: None. FINDINGS: The lungs are clear and expanded. There is no demonstrated pleural abnormality. Normal size heart. Normal mediastinum and amber. Normal visualized pulmonary arteries. Normal visualized aortic arch and descending thoracic aorta. Normal visualized thoracic spine. Normal visualized ribs, clavicles, and shoulders. There is no demonstrated abnormality of the visualized soft tissue structures of the upper abdomen. RAD/Chest 1 View (Portable) IMPRESSION: Normal x-ray examination of the chest. Electronically Signed: Mauri Guan DO at 17:42 EST Tel [phone], Service support ,
[2021-09-19] MEDS: Ondansetron ODT 4 MG Tablet PO (17:36)
[2021-09-19] MEDS: dexAMETHasone 4 MG Tablet 6 MG PO (18:23)
== END 2021-09-19 18:35 | disposition home or self-care (01) ==
PROVIDERS: Emergency Provider Emergency Medicine
DX: U07.1 COVID-19 (principal)
CPT/HCPCS: 71045; 87426; 99283

== ENCOUNTER 2021-09-23 10:54 | Outpatient (CLI) | payer OTHER, SELFPAY ==
[2021-09-23 11:04] VITALS: BP 135/95; PULSE 72; RESP 20; TEMP 36.8; O2SAT 100; BMI 31.0
[2021-09-23] MEDS: 0.9% Saline Lock 10 ML Syringe IV (11:11)
[2021-09-23 12:03] VITALS: BP 103/70; PULSE 65; RESP 16; TEMP 37.1; O2SAT 100
[2021-09-23 12:57] VITALS: BP 110/66; PULSE 70; RESP 16; TEMP 36.8; O2SAT 99
== END 2021-09-23 13:07 | disposition home or self-care (01) ==
LOC: MS3OUT 10:54 → MS3 10:55
PROVIDERS: Referring Provider Nurse Practitioner Adult Health; Visit Provider Nurse Practitioner Adult Health
DX: Z23 Encounter for immunization (principal); U07.1 COVID-19
CPT/HCPCS: J7050; M0245; Q0245; A4216

== ENCOUNTER → 2022-07-23 | Outpatient (CLI) | payer OTHER, SELFPAY ==
[2022-07-23 15:54] LABS: Absolute Lymphocyte Count 2.27 X10^3/uL (0.83-4.51); Absolute Neutrophil Count 4.1 X10^3/uL (2.0-7.7); Basophil# 0.05 X10^3/uL; Basophil% 0.7 % (0-1); Eosinophil# 0.14 X10^3/uL; Hematocrit 39.7 % (37-47); Hemoglobin 13.7 g/dL (12.0-15.0); Lymphocyte # 2.27 X10^3/ul (0.83-4.51); Lymphocyte % 31.9 % (19-41); Mean Corp Hgb Conc 34.5 g/dL (32-36); Mean Corpuscular Hgb 30.7 pg (27.0-32.0); Mean Platelet Vol. 10.4 fl (6.2-12.0); Monocyte# 0.58 X10^3/uL; Monocyte% 8.1 % (0-10); NRBC Flagged by Analyzer 0 % (0-5); Neutrophil # 4.07 X10^3/uL (2.7-7.7); Neutrophil % 57.2 % (47-70); Platelet Count 274 K/mm3 (150-450); RBC Distribution Width CV 13.3 % (11.6-14.6); RBC Distribution Width SD 43.8 fl (35.1-43.9); Red Blood Count 4.46 M/mm3 (4.2-5.4); White Blood Count 7.1 K/mm3 (4.4-11.0)
[2022-07-23 16:18] LABS: Vitamin D,25 Hydroxy 25.3 ng/mL
[2022-07-23 16:24] LABS: Thyroid Stim Hormone (TSH) 1.77 uIU/mL (0.358-3.74)
== END | disposition home or self-care (01) ==
LOC: LAB 14:47
PROVIDERS: Visit Provider Nurse Practitioner Women's Health
DX: R53.83 Other fatigue (principal); Z13.29 Encounter for screening for other suspected endocrine disorder
CPT/HCPCS: 36415; 82306; 84443; 85025

== ENCOUNTER 2022-12-30 13:23 | Emergency (ER) | payer OTHER, SELFPAY ==
[2022-12-30 13:24] VITALS: BP 122/86; PULSE 107; RESP 20; TEMP 36.6; O2SAT 99; BMI 30.7
[2022-12-30 13:49] LABS: Absolute Neutrophil Count 5.8 X10^3/uL (2.0-7.7); Basophil# 0.03 X10^3/uL; Basophil% 0.4 % (0-1); Eosinophil# 0.02 X10^3/uL; Eosinophils% 0.3 % (0-5); Hemoglobin 13.5 g/dL (12.0-15.0); Lymphocyte % 15.1 % (19-41); Mean Corp Hgb Conc 33.8 g/dL (32-36); Mean Corpuscular Hgb 30.1 pg (27.0-32.0); Mean Corpuscular Volume 89.3 fL (81-99); Mean Platelet Vol. 10.5 fl (6.2-12.0); Monocyte# 0.37 X10^3/uL; Monocyte% 5.1 % (0-10); NRBC Flagged by Analyzer 0 % (0-5); Neutrophil # 5.76 X10^3/uL (2.7-7.7); Neutrophil % 78.8 % (47-70); Platelet Count 267 K/mm3 (150-450); RBC Distribution Width CV 12.9 % (11.6-14.6); RBC Distribution Width SD 42.3 fl (35.1-43.9); Red Blood Count 4.48 M/mm3 (4.2-5.4); White Blood Count 7.3 K/mm3 (4.4-11.0)
[2022-12-30 13:59] LABS: Internal QC Validated? YES +Cl - CLEAR BKGD; Pregnancy, Serum, hCG Quali. NEGATIVE Negative
[2022-12-30 14:08] LABS: Anion Gap 5 (5-15); BUN 8 mg/dL (7-18); BUN/Creat Ratio 10.3 RATIO (10-20); Calcium,Total 9.2 mg/dL (8.5-10.1); Chloride 110 mmol/L (98-107); Creatinine, Serum 0.78 mg/dL (0.55-1.02); EST Glomerular Filtration Rate 91 mL/min (>60); Est Glom Filt Rate - Afr Amer 111 mL/min (>60); Estimated Creatinine Clearance 89.41 ml/min; Glucose 108 mg/dL (74-106); Potassium 3.9 mmol/L (3.5-5.1); Sodium Level 139 mmol/L (136-145); Troponin-I HS (w/2H Reflex) 5 pg/mL (3.0-54.0)
[2022-12-30 14:24] VITALS: BP 127/88; PULSE 102; RESP 14; O2SAT 100
--- NOTE | 2022-12-30 14:32 | CT_ITS ---
STUDY: CT ABDOMEN AND PELVIS WITHOUT CONTRAST REASON FOR EXAM: Female, 32 years old. Pain-DIFFUSE. PRIOR APPENDECTOMY RADIATION DOSAGE (If Supplied By Facility): CTDIvol = ( 13.57 ) mGy, DLP = ( 655.14 ) mGycm TECHNIQUE: Transaxial images were obtained from the dome of the diaphragm to the symphysis pubis without oral contrast, and without intravenous contrast. Sagittal and coronal images were reconstructed. Individualized dose optimization techniques were used for this CT. COMPARISON: None. FINDINGS: The visualized lung bases are unremarkable. The visualized portions of the heart are within normal limits. Normal liver. Normal gallbladder and extrahepatic biliary system. Normal spleen. Normal pancreas. Normal bilateral adrenal glands. Normal right kidney. Normal left kidney. Normal visualized stomach. Normal small intestine. Normal colon. Appendix not clearly visualized. Normal abdominal aorta. Normal inferior vena cava. Normal retroperitoneum. Normal urinary bladder. Normal abdominal wall. Normal osseous structures. CT/Abdomen/Pelvis without Cont IMPRESSION: No evidence of acute intra-abdominal process or focal inflammation. Electronically Signed: Travis Pérez DO at 16:12 EDT ,
[2022-12-30] MEDS: Morphine 4 MG/ML Syringe IV (14:38)
[2022-12-30] MEDS: 0.9% Normal Saline 1,000 ML 1000 ML IV (14:38)
[2022-12-30] MEDS: Ondansetron 4 MG/2 ML Vial IV (14:38)
--- NOTE | 2022-12-30 14:45 | ED.VIS.CHEST ---
HPI History of Present Illness Chief Complaint: Palpitations Informant: patient Onset/Context/Timing Onset: Yesterday Activity at onset: gradual Timing: Waxes and wanes Quality: Positive for - (Fluttering) Location: Substernal Worsened By: - (Laying flat and laying on left side) Relieved By: Nothing Associated Symptoms: Positive for Nausea, Vomiting, Dyspnea, Lightheadedness, Palpitations and - (Headache); Negative for Diaphoresis, Cough, Fever or Acid Reflux Narrative Narrative: Patient presents with chest pain and palpitations that began yesterday. Patient states it feels like a fluttering in her chest. Patient states it came on gradually. Patient states it has been waxing and waning since yesterday. Patient states it is worse with laying flat and worse with laying on her left side. Patient states nothing seems to make it any better. Patient admits to some nausea and vomiting with this. Patient also admits to some diarrhea. Patient admits to a headache and lightheadedness. Patient also admits to some shortness of breath. Patient denies any cough. Patient denies any fevers. Patient has a history of gestational diabetes but has not had any problems with her blood sugar since she delivered. CVD Risk Factors: Negative for Hypertension, Diabetes, Hypercholesterolemia, Family History 1' </=55 or Smoking PE Risk Factors: Negative for Recent Travel/Surgery, Recent Immobilization, Prior DVT or PE, Cancer or OCP + Smoking + >/=35 [facility] Medical History H/O gestational diabetes in prior , currently Raynaud disease Vitamin D deficiency Home Medications vitamin#30 30 mg iron-10 mg iron-folic acid 1 mg-omg3 capsule 30 cap PO DAILY 04/23/21 [History Last Taken Unknown] Allergy/AdvReac Type Severity Reaction Status Date / Time latex Allergy Severe Hives Verified 12/30/22 13:27 shellfish derived Allergy Severe Anaphylaxis Verified 12/30/22 13:27 amoxicillin Allergy Hives Verified 12/30/22 13:27 gluten Allergy Upset Verified 12/30/22 13:27 Stomach milk [dairy] AdvReac Upset Verified 12/30/22 13:27 Stomach Family History Mother Diabetes type 2 Bipolar 1 disorder, depressed Schizo affective schizophrenia Father Thyroid disorder Cancer Brother Diabetes type 1 Sister Thyroid disorder Sister Thyroid disorder Aunt Diabetes type 1 Grandmother Breast cancer Surgical History History of appendectomy Social History household members: family housing: house number of children: 1 current occupational status: employed current occupation: engineering recruiter for [employer] pets and animals: Yes Smoking Status: Never smoker second hand exposure: No alcohol intake: current alcohol intake frequency: holidays/special occasions only details: not while substance use type: does not use diet: diabetic, gluten free and lactose free seatbelt use: always do you feel safe at home: Yes 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) ROS ROS ED Constitutional Constitutional ED: Denies chills or fever(s) Eyes Eyes: Denies blurry vision or change in vision ENT ENT ED: Reports rhinorrhea; Denies sore throat Cardiovascular Cardiovascular: Reports palpitations; Denies chest pain Respiratory/Chest Respiratory/Chest: Reports dyspnea; Denies cough Gastrointestinal Gastrointestinal: Reports nausea and vomiting Genitourinary Genitourinary ED: Reports urinary frequency; Denies dysuria or hematuria Musculoskeletal Musculoskeletal: Denies back pain or neck pain Integumentary Denies abscess or rash Neurologic Neurologic: Reports headache(s); Denies weakness Allergic/Immunologic Allergic/Immunologic ED: Denies mouth swelling or urticaria EXAM Physical Exam Const Vital Signs: 12/30/22 13:24 12/30/22 14:22 12/30/22 14:24 Temperature 98 F Temperature Source Temporal Pulse Rate 107 H 102 H Respiratory Rate 20 H 14 Respiratory Effort Normal Non-Labored Blood Pressure 122/86 H 127/88 H Blood Pressure Mean 98 101 Pulse Ox 99 100 Oxygen Delivery Method Room Air Room Air 12/30/22 15:00 12/30/22 16:00 12/30/22 18:30 Temperature Temperature Source Pulse Rate 82 82 80 Respiratory Rate 16 16 16 Respiratory Effort Blood Pressure 116/73 112/76 119/67 Blood Pressure Mean 87 88 Pulse Ox 99 99 99 Oxygen Delivery Method Room Air Room Air Positive well nourished and well developed General Appearance ED: well developed and NAD HEENT Reports moist mucous membranes Neck supple and no JVD Resp normal respiratory effort and clear to auscultation bilaterally Cardio regular rate, regular rhythm and no murmurs GI normal to inspection, nondistended, normoactive bowel sounds and soft to palpation GI Narrative: There is mild diffuse tenderness. There is no rebound or guarding noted. Palpation: soft Extremity normal to inspection General Extremety ED: Negative for edema or tenderness General Extremity: Negative for edema Neuro oriented x3, CN's II-XII intact bilaterally and no sensory deficits noted Sensorium / Orientation: awake and alert Motor Exam: strength 5/5 throughout Psych mental status grossly normal Skin no rashes or lesions noted MDM MDM MDM Narrative Medical decision making narrative: Differential diagnosis includes cardiac dysrhythmia, cardiac ischemia, anemia, pancreatitis, gastroesophageal reflux disease, pneumonia, pneumothorax, urinary tract infection, bowel obstruction, perforation, and electrolyte abnormality. EKG will be obtained to assess for cardiac dysrhythmia and cardiac ischemia. Chest x-ray will be obtained to assess for pneumonia and pneumothorax. CBC will be obtained to assess for anemia and leukocytosis. Basic metabolic profile will be obtained to assess for renal function and electrolyte abnormality. Hepatic profile will be obtained to assess for liver function. Lipase will be obtained to assess for pancreatitis. Urinalysis will be obtained to assess for urinary tract infection. CT scan of the abdomen pelvis will be obtained to assess for bowel obstruction and perforation. Serum hCG will be obtained to assess for . Lab Data Attestation: I reviewed the patient's lab results. Lab results narrative: CBC was reviewed and was within normal limits. Basic metabolic profile was reviewed and was within normal limits. High-sensitivity troponin was reviewed and was normal. Serum hCG was reviewed and was negative. Hepatic profile was reviewed and was within normal limits. Lipase was reviewed and was normal. Urinalysis was reviewed. There is occult blood of 250 with 10-25 red blood cells. There is no evidence of urinary tract infection. Labs: Laboratory Results - last 24 hr 12/30/22 12/30/22 12/30/22 13:40 13:40 13:40 WBC 7.3 RBC 4.48 Hgb 13.5 Hct 40.0 MCV 89.3 MCH 30.1 MCHC 33.8 RDW Std Deviation 42.3 RDW Coeff of Karey 12.9 Plt Count 267 MPV 10.5 Immature Gran % (Auto) 0.300 Neut % (Auto) 78.8 H Lymph % (Auto) 15.1 L Oliver % (Auto) 5.1 Eos % (Auto) 0.3 Baso % (Auto) 0.4 Absolute Neuts (auto) 5.8 Absolute Lymphs (auto) 1.10 Nucleated RBC % 0 Sodium 139 Potassium 3.9 Chloride 110 H Carbon Dioxide 24.0 Anion Gap 5 BUN 8 Creatinine 0.78 Estim Creat Clear Calc 89.41 Est GFR (MDRD) Af Amer 111 Est GFR (MDRD) Non-Af 91 BUN/Creatinine Ratio 10.3 Glucose 108 H Calcium 9.2 Total Bilirubin Direct Bilirubin AST ALT Alkaline Phosphatase Troponin I High Sens 5 Total Protein Albumin Globulin Lipase Serum , Qual NEGATIVE Urine Color Urine Clarity Urine pH Ur Specific [place] Urine Protein Urine Glucose (UA) Urine Ketones Urine Occult Blood Urine Nitrite Urine Bilirubin Urine Urobilinogen Ur Leukocyte Esterase Urine RBC Urine WBC Ur Squamous Epith Cells Urine Bacteria Urine Mucus 12/30/22 12/30/22 13:40 16:02 WBC RBC Hgb Hct MCV MCH MCHC RDW Std Deviation RDW Coeff of Karey Plt Count MPV Immature Gran % (Auto) Neut % (Auto) Lymph % (Auto) Oliver % (Auto) Eos % (Auto) Baso % (Auto) Absolute Neuts (auto) Absolute Lymphs (auto) Nucleated RBC % Sodium Potassium Chloride Carbon Dioxide Anion Gap BUN Creatinine Estim Creat Clear Calc Est GFR (MDRD) Af Amer Est GFR (MDRD) Non-Af BUN/Creatinine Ratio Glucose Calcium Total Bilirubin 0.20 Direct Bilirubin 0.08 AST 16 ALT 27 Alkaline Phosphatase 85 Troponin I High Sens Total Protein 7.6 Albumin 3.8 Globulin 3.8 Lipase 95 Serum , Qual Urine Color SEE COMMENT BELOW Urine Clarity Clear Urine pH 7.0 Ur Specific [place] 1.005 Urine Protein 30 H Urine Glucose (UA) Normal Urine Ketones 15 H Urine Occult Blood 250 H Urine Nitrite Negative Urine Bilirubin Negative Urine Urobilinogen Normal Ur Leukocyte Esterase 100 H Urine RBC 10-25 SEEN Urine WBC 0-5 SEEN Ur Squamous Epith Cells 0-5 SEEN Urine Bacteria 1+ Urine Mucus 0 SEEN Radiography Chest X-Ray - ED: 1 View, Read by ED Physician, Read by Radiologist and No Acute Disease Diagnostic Testing: Clinical Impression(s) from Imaging Studies Abdomen/Pelvis CT 12/30/22 14:32 IMPRESSION: No evidence of acute intra-abdominal process or focal inflammation. Electronically Signed: Travis Pérez DO at 16:12 EDT , Chest X-Ray 12/30/22 14:55 IMPRESSION: No evidence of acute cardiopulmonary process. Electronically Signed: Travis Pérez DO at 16:12 EDT , Portable 1 view chest x-ray was obtained. On my independent interpretation, lung bright are clear. There is normal cardiac silhouette. Bony thorax is normal. There is no acute process noted. Radiologist also interpreted the x-ray and agrees. CT scan of the abdomen pelvis was obtained. There is no free air or free fluid. There is no evidence of perforation or obstruction. There is no acute intra-abdominal process. This was interpreted by the radiologist and was also independently reviewed by myself. EKG Initial EKG: Attestation: I personally reviewed and interpreted this EKG as follows: Interpretation: Sinus Rhythm (94) and No Acute Injury Pattern Comments: EKG was obtained. On my independent interpretation, it showed a normal sinus rhythm with a rate of 94. LA interval, QRS interval, and QTc intervals were all normal. Farnam was normal. There are no acute ST or T wave changes. Prior EKG tracings: not available for review Prior: No Prior Treatment and Re-Evaluation :: Patient is given IV fluids, morphine, and Zofran. Patient was advised of her findings. Patient is feeling better on reevaluation. Patient was instructed to follow-up with her primary care physician in 5 to 7 days for further evaluation. Patient understood and was agreeable with the plan. All questions were answered. Discharge Plan Triage Chief Complaint: Palpitations ED Provider: Abraham Barros Dx/Rx/DC Orders Clinical Impression: Chest pain of uncertain etiology, Abdominal pain Instructions: ED Abdominal Pain Unkn Cause Fem, ED Chest Pain, Uncertain Cause Prescriptions: No Action PNV #[id number] 30 mg iron-10 mg iron-1 mg capsule 30 cap PO DAILY Primary Care Provider: Care Physician,Fatou Primary Referrals: Daniel Freeman DO [Med Staff - Rn Visiting] - 5-7 Days Care Physician,No Primary [Primary Care Provider] - Disposition Disposition: Home, Self Care Discharge Date/Time: 12/30/22 18:35
--- NOTE | 2022-12-30 14:55 | RAD_ITS ---
STUDY: X-RAY CHEST REASON FOR EXAM: Female, 32 years old. chest pain TECHNIQUE: Single PA view of the chest. COMPARISON: 09/19/2021 FINDINGS: The lungs are clear and expanded. There is no demonstrated pleural abnormality. Normal size heart. Normal mediastinum and amber. Normal visualized pulmonary arteries. Normal visualized aortic arch and descending thoracic aorta. Normal visualized thoracic spine. Normal visualized ribs, clavicles, and shoulders. There is no demonstrated abnormality of the visualized soft tissue structures of the upper abdomen. RAD/Chest 1 View (Portable) IMPRESSION: No evidence of acute cardiopulmonary process. Electronically Signed: Travis Pérez DO at 16:12 EDT ,
[2022-12-30 14:59] LABS: AST(SGOT) 16 U/L (15-37); Alanine Aminotransfer ALT/SGPT 27 U/L (13-56); Albumin, Serum 3.8 g/dL (3.2-5.0); Alkaline Phosphatase 85 U/L (45-117); Bilirubin, Direct 0.08 mg/dL (0.00-0.30); Globulin 3.8 g/dL (2.2-4.2); Lipase 95 U/L (73-393); Protein, Total 7.6 g/dL (6.4-8.2)
[2022-12-30 15:00] VITALS: BP 116/73; PULSE 82; RESP 16; O2SAT 99
--- NOTE | 2022-12-30 15:33 | CM.ED ---
Social Work Note Referral Source: case find Referral Reason: no PCP SW met with patient and introduced herself and role as [facility] Follow Up Manager. Patient was seated on hospital bed and agreeable to speak with SW. SW inquired about patient's insurance and current PCP. Patient verified insurance and reports no current PCP. SW provided patient with a list of PCPs in network with patient's insurance with 25 [place] from patient's home and accepting new patients. Patient was receptive towards list and voiced no other needs. SW remains available if needs arise. Rosa Molina CARDIAC EXERCISE SPECIALIST, [place]
[2022-12-30 16:00] VITALS: BP 112/76; PULSE 82; RESP 16; O2SAT 99
[2022-12-30 16:12] LABS: Mucous, Urine 0 SEEN /hpf (<or=2+)
[2022-12-30 16:15] LABS: Glucose, Dipstick Normal (Normal); Ketone-Dipstick 15 mg/dl (Negative); Leukocyte Esterase-Dipstick 100 /ul (Negative); Nitrite-Dipstick Negative (Negative); Occult Blood-Urine 250 /ul (Negative); Protein-Dipstick 30 mg/dl (Negative); Specific Gravity, Urine 1.005 (1.002-1.030); Urine Bilirubin Dipstick Negative (Negative); Urine Clarity Clear (Clear); Urine Urobilinogen Normal (Normal)
[2022-12-30 16:21] LABS: Color, Urine SEE COMMENT BELOW (Yellow)
[2022-12-30 16:22] LABS: Red Blood Cells-Urine 10-25 SEEN /hpf (0-5); Squamous Epithelial Cells - UA 0-5 SEEN /hpf (5-10); White Blood Cells 0-5 SEEN /hpf (0-5)
[2022-12-30 16:23] LABS: Bacteria 1+ /hpf (None Seen)
[2022-12-30 18:30] VITALS: BP 119/67; PULSE 80; RESP 16; O2SAT 99
== END 2022-12-30 18:35 | disposition home or self-care (01) ==
PROVIDERS: Emergency Provider Emergency Medicine; Visit Provider Emergency Medicine
DX: R07.9 Chest pain, unspecified (principal); R10.9 Unspecified abdominal pain
CPT/HCPCS: 71045; 74176; 80048; 80076; 81001; 83690; 84484; 84703; 85025; 93005; 96361; 96374; 96375; 99285; J7030; A4216; J2405

== ENCOUNTER → 2023-01-11 | Outpatient (CLI) | payer OTHER, SELFPAY ==
[2023-01-11 10:51] LABS: Prolactin 10.3 ng/mL; T4 Free Direct 1.05 ng/dL (0.76-1.46); Thyroid Stim Hormone (TSH) 1.36 uIU/mL (0.358-3.74)
[2023-01-12 14:09] LABS: Thyroglobulin Antibody < 1.0 IU/mL (0.0-0.9); Thyroid Peroxidase AB < 9 IU/mL (0-34)
[2023-01-14 10:08] LABS: 17-Hydroxyprogesterone 87 ng/dL (.)
== END | disposition home or self-care (01) ==
LOC: LAB 09:04
PROVIDERS: Referring Provider Nurse Practitioner Women's Health; Visit Provider Nurse Practitioner Women's Health
DX: Z13.29 Encounter for screening for other suspected endocrine disorder (principal); N64.3 Galactorrhea not associated with childbirth; E55.9 Vitamin D deficiency, unspecified; F41.9 Anxiety disorder, unspecified; R00.2 Palpitations
CPT/HCPCS: 36415; 83498; 84146; 84439; 84443; 86376; 86800